=== PATIENT | male | born 1950 | race Caucasian/White ===

== ENCOUNTER 2022-04-10 18:06 | Inpatient (IN) | payer MEDICARE ==
[2022-04-10] MEDS: Sodium Chloride 0.9% 1,000 ML IV ONE ×3 (18:57→21:45)
[2022-04-10] MEDS ORDERED: Sodium Chloride 0.9% 1,000 ML IV SCH (23:15)
[2022-04-11] MEDS: Lactated Ringers 1,000 ML IV SCH (00:54)
[2022-04-12] MEDS: Potassium Chloride 10 MEQ Tab.ER PO SCH ×2 (10:16→19:48)
[2022-04-12] MEDS: Lactated Ringers 1,000 ML IV SCH (10:18)
[2022-04-12] MEDS ORDERED: traZODone 50 MG Tab ONE (19:31)
[2022-04-12] MEDS ORDERED: traZODone 50 MG Tab PO SCH (20:00)
[2022-04-12] MEDS ORDERED: Melatonin 10 MG Cap PO SCH (20:00)
[2022-04-13] MEDS: Potassium Chloride 10 MEQ Tab.ER PO SCH (09:47)
== END 2022-04-13 11:08 | DRG 641 ==
LOC: LB.ED 18:06 → LB.MS 23:30
PROVIDERS: ADMIT Surgery; ATTEND Surgery
DX: E86.0 Dehydration (principal); G47.00 Insomnia, unspecified; G30.9 Alzheimer's disease, unspecified; F02.B0 Dementia in other diseases classified elsewhere, moderate, without behavioral disturbance, psychotic disturbance, mood disturbance, and anxiety; F02.80 Dementia in other diseases classified elsewhere, unspecified severity, without behavioral disturbance, psychotic disturbance, mood disturbance, and anxiety; Z20.822 Contact with and (suspected) exposure to COVID-19
CPT/HCPCS: 36415; 80048; 81001; 85027; A0425; A0429; J7030 ×3; U0002; 70450; 81003; 85025; A9270-GY; J7120

== ENCOUNTER 2022-05-14 14:58 | Emergency (ER) | payer MEDICARE | END 2022-05-14 16:50 | disposition home or self-care (01) | LOC: LB.ED 14:58 | DX: G30.9 Alzheimer's disease, unspecified (principal) | CPT/HCPCS: 36415; 80048; 81003; 85027; 99284; 99285 ==

== ENCOUNTER 2022-08-15 08:55 | Emergency (ER) | payer MEDICARE ==
[2022-08-15 09:12] VITALS: BP 148/79; PULSE 98
[2022-08-15 09:44] LABS: BASOPHILS ABSOLUTE AUTO 0.02 K/uL (0.02-0.10); BASOPHILS PERCENT AUTO 0.4 % (0.0-0.5); HEMATOCRIT 39.6 % (40.0-54.0); HEMOGLOBIN 14.4 g/dL (13.0-18.0); LYMPHOCYTES ABSOLUTE AUTO 0.97 K/uL (1.50-4.00); MEAN CORPUSCULAR HGB CONC 36.4 g/dL (31.0-35.0); MEAN CORPUSCULAR VOLUME 85 fL (76-96); MEAN PLATELET VOLUME 9.7 fL (6.0-10.0); MONOCYTES ABSOLUTE AUTO 0.43 K/uL (0.20-0.80); MONOCYTES PERCENT AUTO 8.4 % (3.0-10.0); NEUTROPHILS ABSOLUTE AUTO 3.59 K/uL (2.00-7.50); NEUTROPHILS PERCENT AUTO 70.2 % (45.0-70.0); RED BLOOD CELL COUNT 4.65 M/uL (4.50-6.50); RED CELL DISTRIBUTION WIDTH 13.2 % (11.0-16.0); WHITE BLOOD CELL COUNT,WBC 5.1 K/uL (4.0-11.0)
[2022-08-15 09:45] LABS: PLATELET COUNT,PLT 90 K/uL (150-400)
[2022-08-15 10:09] LABS: A/G RATIO 1.1 (0.8-2.0); ALBUMIN 3.6 g/dL (3.4-5.0); ANION GAP 10.3 mmol/L (5.0-15.0); BUN/CREATININE RATIO 12.7 (6-25); CALCIUM 8.5 mg/dL (8.5-10.1); CARBON DIOXIDE,CO2 27.2 mmol/L (21.0-32.0); CREATININE 1.02 mg/dL (0.70-1.30); EST CRCL DRUG DOSING (CG) 71.81 mL/min; POTASSIUM,K 3.5 mmol/L (3.5-5.1); TSH ULTRASENSITIVE 3.498 uIU/mL (0.358-3.740)
[2022-08-15 10:10] LABS: APPEARANCE,URINE CLEAR (CLEAR); BILIRUBIN,URINE NEGATIVE (NEGATIVE); COLOR,URINE YELLOW; GLUCOSE,URINE NEGATIVE (NEGATIVE); KETONES,URINE TRACE mg/dL (NEGATIVE); LEUKOCYTE ESTERASE,URINE NEGATIVE (NEGATIVE); NITRITE,URINE NEGATIVE (NEGATIVE); OCCULT BLOOD,URINE NEGATIVE (NEGATIVE); PROTEIN,URINE NEGATIVE (NEGATIVE); UROBILINOGEN,URINE 0.2 E.U./dL (0.2-1.0)
[2022-08-15 10:15] LABS: AMORPHOUS SEDIMENT,URINE FEW /HPF; MUCUS,URINE FEW /HPF; RBC,URINE NOT SEEN /HPF; SQUAMOUS EPITHELIAL CELLS,UR OCCASIONAL /HPF; WBC,URINE 0-5 /HPF
== END 2022-08-15 10:37 ==
LOC: LB.ED 08:55
DX: R41.89 Other symptoms and signs involving cognitive functions and awareness (principal)
CPT/HCPCS: 36415; 80053; 81001; 82607; 84443; 85025; 97165-GO; 99285

== ENCOUNTER 2022-12-19 21:22 | Emergency (ER) | payer MEDICARE, MEDICAID ==
[2022-12-19] MEDS: Aluminum Hydroxide/Magnesium Hydroxide/Simethicone Susp 30 ML Cup PO SCH (22:12)
[2022-12-19] MEDS: Lidocaine 2% Viscous Solution 15 ML UD PO ONE (22:16)
[2022-12-19] MEDS: Ondansetron 4 MG Tab.DIS PO ONE (22:16)
[2022-12-19] MEDS: GI Cocktail Oral Solution 30 ML PO ONE (22:17)
[2022-12-19 22:32] LABS: BASOPHILS ABSOLUTE AUTO 0.03 K/uL (0.02-0.10); BASOPHILS PERCENT AUTO 0.3 % (0.0-0.5); EOSINOPHILS ABSOLUTE AUTO 0.03 K/uL (0.04-0.40); EOSINOPHILS PERCENT AUTO 0.3 % (1.0-5.0); HEMATOCRIT 41.7 % (40.0-54.0); HEMOGLOBIN 14.7 g/dL (13.0-18.0); LYMPHOCYTES ABSOLUTE AUTO 0.65 K/uL (1.50-4.00); LYMPHOCYTES PERCENT AUTO 6.9 % (20.0-40.0); MEAN CORPUSCULAR HEMOGLOBIN 29.9 pg (27.0-32.0); MEAN CORPUSCULAR HGB CONC 35.3 g/dL (31.0-35.0); MEAN CORPUSCULAR VOLUME 85 fL (76-96); MEAN PLATELET VOLUME 9.9 fL (6.0-10.0); MONOCYTES ABSOLUTE AUTO 0.49 K/uL (0.20-0.80); MONOCYTES PERCENT AUTO 5.2 % (3.0-10.0); NEUTROPHILS ABSOLUTE AUTO 8.18 K/uL (2.00-7.50); NEUTROPHILS PERCENT AUTO 87.3 % (45.0-70.0); PLATELET COUNT,PLT 98 K/uL (150-400); RED BLOOD CELL COUNT 4.91 M/uL (4.50-6.50); RED CELL DISTRIBUTION WIDTH 13.7 % (11.0-16.0); WHITE BLOOD CELL COUNT,WBC 9.4 K/uL (4.0-11.0)
[2022-12-19] MEDS: Ondansetron 4 MG Tab.DIS ONE (22:39)
[2022-12-19 22:51] LABS: ALBUMIN 3.8 g/dL (3.4-5.0); ANION GAP 12.5 mmol/L (5.0-15.0); BILIRUBIN TOTAL 0.8 mg/dL (0.0-1.0); BUN/CREATININE RATIO 15.4 (6-25); CALCIUM 8.9 mg/dL (8.5-10.1); CARBON DIOXIDE,CO2 29.3 mmol/L (21.0-32.0); CREATININE 1.17 mg/dL (0.70-1.30); EST CRCL DRUG DOSING (CG) 55.39 mL/min; POTASSIUM,K 3.8 mmol/L (3.5-5.1); PROTEIN TOTAL,TP 7.7 g/dL (6.4-8.2)
[2022-12-19] MEDS ORDERED: Ondansetron 4 MG Tab.DIS ONE (23:00)
[2022-12-20] MEDS: HYDROmorphone 2 MG/ML Syringe IVPUSH ONE (12:59)
[2022-12-20] MEDS: Sodium Chloride 0.9% 1,000 ML IV ONE (12:59)
== END 2022-12-19 23:30 | disposition home or self-care (01) ==
LOC: LB.ED 21:22
DX: K29.70 Gastritis, unspecified, without bleeding (principal); K29.80 Duodenitis without bleeding
CPT/HCPCS: 36415; 74019; 74176; 80053; 83690; 85025; 99284; A9270-GY; Q0162

== ENCOUNTER 2023-01-27 10:39 | Emergency (ER) | payer MEDICARE ==
[2023-01-27] MEDS: Prochlorperazine 10 MG/2 ML SDV IVPUSH ONE (11:16)
[2023-01-27] MEDS: Lidocaine 2% Viscous Solution 15 ML UD PO ONE (11:24)
[2023-01-27] MEDS: diphenhydrAMINE 12.5 MG/5 ML Liquid 120 ML Bottle PO ONE (11:25)
[2023-01-27] MEDS: GI Cocktail Oral Solution 30 ML PO ONE (11:26)
[2023-01-27] MEDS: Aluminum Hydroxide/Magnesium Hydroxide/Simethicone Susp 30 ML Cup PO ONE (11:26)
[2023-01-27 11:51] LABS: BASOPHILS ABSOLUTE AUTO 0.04 K/uL (0.02-0.10); BASOPHILS PERCENT AUTO 0.3 % (0.0-0.5); EOSINOPHILS ABSOLUTE AUTO 0.01 K/uL (0.04-0.40); EOSINOPHILS PERCENT AUTO 0.1 % (1.0-5.0); HEMATOCRIT 47.9 % (40.0-54.0); HEMOGLOBIN 17.4 g/dL (13.0-18.0); LYMPHOCYTES ABSOLUTE AUTO 1.09 K/uL (1.50-4.00); LYMPHOCYTES PERCENT AUTO 8.5 % (20.0-40.0); MEAN CORPUSCULAR HEMOGLOBIN 29.7 pg (27.0-32.0); MEAN CORPUSCULAR HGB CONC 36.3 g/dL (31.0-35.0); MEAN CORPUSCULAR VOLUME 82 fL (76-96); MEAN PLATELET VOLUME 10.1 fL (6.0-10.0); MONOCYTES ABSOLUTE AUTO 0.87 K/uL (0.20-0.80); MONOCYTES PERCENT AUTO 6.8 % (3.0-10.0); NEUTROPHILS ABSOLUTE AUTO 10.81 K/uL (2.00-7.50); NEUTROPHILS PERCENT AUTO 84.3 % (45.0-70.0); PLATELET COUNT,PLT 150 K/uL (150-400); RED BLOOD CELL COUNT 5.85 M/uL (4.50-6.50); WHITE BLOOD CELL COUNT,WBC 12.8 K/uL (4.0-11.0)
[2023-01-27 12:00] LABS: ALBUMIN 4.3 g/dL (3.4-5.0); ANION GAP 18.6 mmol/L (5.0-15.0); BILIRUBIN TOTAL 1.5 mg/dL (0.0-1.0); BUN/CREATININE RATIO 10.4 (6-25); CARBON DIOXIDE,CO2 21.9 mmol/L (21.0-32.0); CREATININE 1.15 mg/dL (0.70-1.30); EST CRCL DRUG DOSING (CG) 56.36 mL/min; POTASSIUM,K 3.5 mmol/L (3.5-5.1); PROTEIN TOTAL,TP 8.8 g/dL (6.4-8.2)
[2023-01-27] MEDS: Sodium Chloride 0.9% 10 ML Syringe FLUSH ONE (12:34)
[2023-01-27] MEDS: Iopamidol 612 MG/ML 100 ML Bottle IV SCH (12:34)
[2023-01-27] MEDS: Sodium Chloride 0.9% 50 ML IV ONE (12:34)
[2023-01-27] MEDS ORDERED: Naloxone 2 MG/2 ML Syringe IVPUSH PRN (12:54)
[2023-01-27] MEDS: Ketorolac 60 MG/2 ML SDV IVPUSH ONE (13:03)
[2023-01-27] MEDS: fentaNYL 100 MCG/2 ML SDV IVPUSH PRN (13:04)
[2023-01-27 14:46] VITALS: BP 110/77; PULSE 88
[2023-01-27] MEDS ORDERED: Sodium Chloride 0.9% 10 ML Syringe FLUSH PRN (18:24)
== END 2023-01-27 14:54 ==
LOC: LB.ED 10:39
DX: K81.9 Cholecystitis, unspecified (principal); R11.14 Bilious vomiting; F03.90 Unspecified dementia, unspecified severity, without behavioral disturbance, psychotic disturbance, mood disturbance, and anxiety; Z87.891 Personal history of nicotine dependence
CPT/HCPCS: 36415; 70450; 74177; 80053; 83690; 83735; 85025; 93005; 96374; 96375; 99285-25; A0425; A0429; A9270-GY; J0780; J1885; J3010; J3490; Q9967

== ENCOUNTER 2023-05-12 14:35 | Emergency (ER) | payer MEDICARE, MEDICAID ==
[2023-05-12 15:30] LABS: APPEARANCE,URINE SLIGHTLY CLOUDY (CLEAR); BILIRUBIN,URINE SMALL (NEGATIVE); COLOR,URINE YELLOW; GLUCOSE,URINE 250 mg/dL (NEGATIVE); KETONES,URINE TRACE mg/dL (NEGATIVE); LEUKOCYTE ESTERASE,URINE NEGATIVE (NEGATIVE); NITRITE,URINE NEGATIVE (NEGATIVE); OCCULT BLOOD,URINE LARGE (NEGATIVE); PH,URINE 5.5 (5.0-8.0); PROTEIN,URINE 100 mg/dL (NEGATIVE); UROBILINOGEN,URINE 0.2 E.U./dL (0.2-1.0)
[2023-05-12 15:48] LABS: A/G RATIO 0.9 (0.8-2.0); ALBUMIN 3.6 g/dL (3.4-5.0); ANION GAP 11.9 mmol/L (5.0-15.0); BILIRUBIN TOTAL 1.3 mg/dL (0.0-1.0); BUN/CREATININE RATIO 12.6 (6-25); CALCIUM 8.5 mg/dL (8.5-10.1); CREATININE 1.35 mg/dL (0.70-1.30); EST CRCL DRUG DOSING (CG) 54.25 mL/min; POTASSIUM,K 3.9 mmol/L (3.5-5.1); PROTEIN TOTAL,TP 7.8 g/dL (6.4-8.2)
[2023-05-12 15:51] LABS: AMORPHOUS SEDIMENT,URINE MODERATE /HPF; EPITHELIAL CELLS,URINE OCCASIONAL /HPF; MUCUS,URINE MANY /HPF; RBC,URINE 20-30 /HPF; WBC,URINE 0-5 /HPF
[2023-05-12 16:13] LABS: HEMATOCRIT 38.9 % (40.0-54.0); HEMOGLOBIN 14.9 g/dL (13.0-18.0); MEAN CORPUSCULAR HEMOGLOBIN 29.2 pg (27.0-32.0); MEAN CORPUSCULAR HGB CONC 38.3 g/dL (31.0-35.0); MEAN CORPUSCULAR VOLUME 76 fL (76-96); MEAN PLATELET VOLUME 9.9 fL (6.0-10.0); RED BLOOD CELL COUNT 5.11 M/uL (4.50-6.50); RED CELL DISTRIBUTION WIDTH 13.7 % (11.0-16.0); WHITE BLOOD CELL COUNT,WBC 5.8 K/uL (4.0-11.0)
[2023-05-12 16:23] LABS: GIANT PLATELETS FEW; PLATELET COUNT ESTIMATE DECREASED; PLATELET COUNT,PLT 49 K/uL (150-400); STOMATOCYTES FEW
[2023-05-12 17:58] LABS: INR 1.2 (1.0-3.5); PTT,PARTIAL THROMBOPLSTIN TIME 31.1 SECONDS (24.4-33.2)
[2023-05-12 17:59] LABS: PROTHROMBIN TIME 11.9 sec (9.0-11.5)
[2023-05-13 00:48] VITALS: BP 125/73; PULSE 54
== END 2023-05-13 07:50 | disposition home or self-care (01) ==
LOC: LB.ED 14:35
DX: G30.9 Alzheimer's disease, unspecified (principal); D69.6 Thrombocytopenia, unspecified; W19.XXXA Unspecified fall, initial encounter
CPT/HCPCS: 36415; 70450; 80053; 81001; 85025; 85049; 85610; 85730; 88104; 99285